=== PATIENT | male | born 1950 | race Caucasian/White ===

== ENCOUNTER 2017-10-21 08:33 | Day surgery (SDC) | payer BC, OTHER ==
[2017-10-18 08:03] VITALS: BMI 39.3
[2017-10-21] MEDS ORDERED: MIDAZOLAM HCL 2 MG/2 ML SINGLE DOSE VIAL ONE (12:33)
[2017-10-21] MEDS ORDERED: ceFAZolin SODIUM 1 GM VIAL ONE (12:58)
[2017-10-21] MEDS ORDERED: ceFAZolin SODIUM 1 GM VIAL IVPB ONE (13:00)
[2017-10-21] MEDS ORDERED: BUPIVACAINE HCL/PF 0.5% (5MG/ML) 10 ML VIAL IJ ONE ×2 (13:12→13:45)
[2017-10-21] MEDS ORDERED: oxyCODONE HCL 5 MG TABLET PO PRN (14:00)
[2017-10-21] MEDS ORDERED: LACTATED RINGERS SOLUTION 1,000 ML IV SCH (14:00)
[2017-10-21] MEDS ORDERED: ONDANSETRON 4 MG/2 ML VIAL IVPUSH PRN (14:00)
[2017-10-21 14:16] VITALS: TEMP 98.2
--- NOTE | 2017-10-21 14:46 | OP ---
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
[2017-10-21 15:47] VITALS: BP 128/58; PULSE 68
--- NOTE | 2017-10-21 20:40 | OP ---
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 PROCEDURE: Removal of inflatable penile prosthesis. ATTENDING: Andria Cummings MD ANESTHESIA: General. DESCRIPTION OF OPERATION: The patient was brought in the operating room and placed in supine position on the operating room table. The patient was prepped and draped in the usual sterile manner. The patient was given spinal anesthesia prior to the initiation of the surgical case. With the patient under spinal anesthesia and prepped and draped in the usual sterile manner, the case was started. The patient was given Ancef preoperatively. A penoscrotal incision was made. Sharp and blunt dissection was taken through multiple layers of fibrotic tissue. The pump aspect of the prosthesis was located in the scrotum and was sharply and bluntly dissected free. With this accomplished, the left corpora cavernosum was dissected with blunt and sharp dissection to allow for entry into the left corpora cavernosum. It must be added that a Nielsen catheter was placed in the bladder in order to make sure that the penile urethra was at all times palpable and could be located easily. The left corporotomy was performed, and the left corpora cavernosum penile prosthesis element was removed. At this point, the distal aspect of the penis was palpated, and the right inflatable penile prosthesis was palpable lateral to the glans of the penis. An incision was made over this area. Sharp and blunt dissection was taken to the level of the inflatable penile prosthesis which had eroded through the right corpora cavernosum. This penile prosthesis element was then removed. All elements of the inflatable penile prosthesis in the scrotum and penis were sent to Pathology. No complications were noted. The left corpora cavernosum was closed with a running 3-0 Vicryl stitch. The distal aspect of the right corpora cavernosum was closed with a running 3-0 Vicryl stitch. All skin wounds were closed in a 2-layer fashion. No complications were noted. The patient tolerated the procedure very well. The Nielsen was removed prior to the completion of the case. The disposition of the patient was to the recovery room. ANDRIA CUMMINGS M.D. [id number]
--- NOTE | 2017-10-23 14:23 | PATH ---
Surgical Pathology Report Patient Name: ISIDRO COTTRELL [facility]. Rec. #: [id number] /Age/Gender: 1950 (Age: 67) / M Account: [id number] Location: [facility] SURGICAL Taken: 10/21/2017 Received: 10/22/2017 Reported: 10/23/2017 Physicians: Ochoa Peres Specimen(s) Received EXPLANTED PENILE PROSTHESIS Clinical History Erosion penile prosthesis Final Diagnosis EXPLANTED PENILE PROSTHESIS, REMOVAL: CONSISTENT WITH PENILE PROSTHESIS, MACROSCOPIC DIAGNOSIS. Electronically Signed Haley Leigh M.D. Gross Description Received fresh labeled "explanted penile prosthesis," are 5 portions of a disrupted device, consistent with a penile prosthesis. The pieces range from 3.6-16.0 cm in greatest dimension. No soft tissue is present. No sections are submitted, gross only. /10/22/2017 saudi10/22/2017
== END 2017-10-21 15:46 | disposition home or self-care (01) ==
LOC: JASU-SURG 08:33
PROVIDERS: ATTEND Urology
PROC: 0VP Male Reproductive System, Removal (ICD-10-PCS; principal; 2017-10-21 10:00)
DX: T83.89XA Other specified complication of genitourinary prosthetic devices, implants and grafts, initial encounter (principal); E11.9 Type 2 diabetes mellitus without complications; D64.9 Anemia, unspecified; E66.9 Obesity, unspecified
CPT/HCPCS: 82962; 88300-TC; 94760